=== PATIENT | female | born 1995 | race Caucasian/White ===

== ENCOUNTER 2023-09-06 | Inpatient (IN) | payer MEDICAID | END 2023-09-09 11:30 | disposition home or self-care (01) | DRG 788 | PROVIDERS: ADMIT Family Medicine | PROC: 10D00Z1 Extraction of Products of Conception, Low, Open Approach (ICD-10-PCS; principal; 2023-09-06) | PROC: 3E033VJ Introduction of Other Hormone into Peripheral Vein, Percutaneous Approach (ICD-10-PCS; 2023-09-06) | PROC: 3E033XZ Introduction of Vasopressor into Peripheral Vein, Percutaneous Approach (ICD-10-PCS; 2023-09-06) | DX: O48.0 Post-term pregnancy (principal); O32.4XX0 Maternal care for high head at term, not applicable or unspecified; Z3A.40 40 weeks gestation of pregnancy; D69.6 Thrombocytopenia, unspecified; Z37.0 Single live birth; O75.89 Other specified complications of labor and delivery; O90.89 Other complications of the puerperium, not elsewhere classified; I95.9 Hypotension, unspecified; R42 Dizziness and giddiness; R33.9 Retention of urine, unspecified; O72.3 Postpartum coagulation defects ==